=== PATIENT | female | born 1975 | race Caucasian/White ===

== ENCOUNTER 2022-10-07 15:07 | Emergency (ER) | payer SELFPAY ==
[2022-10-07 15:15] VITALS: BP 147/95; PULSE 98; RESP 18; TEMP 37.1; O2SAT 95; BMI 28.9
--- NOTE | 2022-10-07 15:51 | ED_ITS ---
HPI - General Adult General: Chief complaint: General Medical Stated complaint: out of seizure meds Time Seen by Provider: 10/07/22 15:25 Source: patient Mode of arrival: ambulatory Limitations: no limitations History of Present Illness: 47-year-old female presents to the ER today for a medication refill. Patient reports she has 1 and half doses of Keppra left. Patient reports she is on 1000 twice daily of Keppra. Seizures are well controlled on that. Patient reports she neglected get an appointment with her PCP in time to get a refill. She does not have an appointment with Dr. Nazario until October 18. Patient needs enough refills to get through until then. Review of Systems General: Reports: 10 or more systems reviewed and unremarkable except in HPI and below Physical Exam Const: COMMON NORMALS: no acute distress, average body habitus, patient oriented x3, no limitations, healthy appearing, alert and well nourished Neuro: COMMON NORMALS: patient oriented x3 SENSORIUM/ORIENTATION: Yes alert Psych: COMMON NORMALS: mental status grossly normal, Normal thought process present and cooperative THOUGHT PROCESS: Normal thought process present Skin: COMMON NORMALS: no rashes or lesions noted GENERAL SKIN EXAM: no rashes or lesions noted Course ED course: Patient presents to the ER needing med refills. Patient is out of Keppra and does not see her PCP until 18 October. She takes with as milligrams twice daily. No concerns reported today. Vital Signs: Vital signs: Vital Signs Temperature 98.7 F 10/07/22 15:15 Pulse Rate 98 10/07/22 15:15 Respiratory Rate 18 10/07/22 15:15 Blood Pressure 147/95 10/07/22 15:15 Pulse Oximetry 95 10/07/22 15:15 Oxygen Delivery Me thod 10/07/22 15:15 MDM - General Adult Medical Decision Making We will refill patient's Keppra dose for 2 weeks. Patient has appointment with Dr. Nazario on the second. No medication dosing changes were made today. Critical Care Time Critical Care Time: Critical Care Time: No Discharge Plan Discharge Patient Disposition: Home Clinical Impression: Seizure disorder Condition: Stable Prescriptions: New Keppra 1,000 mg tablet 1,000 mg PO BID 14 Days Qty: 28 0RF Discharge Orders: Discharge ED (Routine); Ordered 10/07/22 Ordered By: Carissa Ramon Discharge Diet: Usual diet Discharge Activity: Resume usual activity Patient Instructions: Opioid Safety, Pain Management Activity Restrictions/Additional Instructions: Keppra as prescribed. Keep appointment with PCP and follow-up on the second. Coding Level of Care Code ED Electrician Locomotive for Raj Roman
== END 2022-10-07 16:06 | disposition home or self-care (01) ==
PROVIDERS: Emergency Provider Physician Assistant
DX: Z76.0 Encounter for issue of repeat prescription (principal); G40.909 Epilepsy, unspecified, not intractable, without status epilepticus
CPT/HCPCS: 99283

== ENCOUNTER 2023-04-24 14:46 | Emergency (ER) | payer MEDICAID, SELFPAY ==
[2023-04-24 14:56] VITALS: BMI 25.4
[2023-04-24 15:08] VITALS: BP 169/102; PULSE 100; RESP 16; TEMP 36.7; O2SAT 95
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
[2023-04-24] MEDS: iohexol 350 mg/mL 500 mL Btl (per mL) IV (16:32)
[2023-04-24 17:32] VITALS: PULSE 82; O2SAT 96
--- NOTE | 2023-04-25 07:48 | DCPLANNER ---
Addendum entered by Violet Bower 05/06/23 13:43: account manager forest service received the following message from Deborah from [facility] regarding referral sent to [facility]: Attempted phone call 2 x's says the number I am calling is currently suspended. Original Note: account manager forest service had message to schedule a follow up appointment for patient with [facility]. account manager forest service sent patients information to the scheduling department at [facility]. Patients information will be printed and reviewed. Clinic will call patient with appointment information.
== END 2023-04-24 17:36 | disposition home or self-care (01) ==
PROVIDERS: Emergency Provider Physician Assistant
DX: S30.1XXA Contusion of abdominal wall, initial encounter (principal); S00.83XA Contusion of other part of head, initial encounter; Y04.2XXA Assault by strike against or bumped into by another person, initial encounter; Y92.009 Unspecified place in unspecified non-institutional (private) residence as the place of occurrence of the external cause
CPT/HCPCS: 70450; 70486; 71045; 72125; 74177; 99285; Q9967

== ENCOUNTER → 2023-05-03 11:27 | Outpatient (BNVA) | payer MEDICAID, SELFPAY | PROVIDERS: Visit Provider Nurse Practitioner Family | DX: G40.909 Epilepsy, unspecified, not intractable, without status epilepticus (principal); Z79.899 Other long term (current) drug therapy | CPT/HCPCS: 80053; 80061; 80157; 84443 ==

== ENCOUNTER 2023-06-24 16:33 | Outpatient (CLI) | payer MEDICAID, SELFPAY ==
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
== END 2023-06-24 16:34 | disposition home or self-care (01) ==
PROVIDERS: PCP Family Medicine; Visit Provider Nurse Practitioner
DX: M54.51 Vertebrogenic low back pain (principal); S22.42XD Multiple fractures of ribs, left side, subsequent encounter for fracture with routine healing; X58.XXXD Exposure to other specified factors, subsequent encounter; M47.817 Spondylosis without myelopathy or radiculopathy, lumbosacral region
CPT/HCPCS: 72110

== ENCOUNTER 2023-07-14 20:19 | Emergency (ER) | payer MEDICAID, SELFPAY ==
[2023-07-14 20:23] VITALS: BP 138/95; PULSE 67; RESP 18; TEMP 36.7; O2SAT 100; BMI 19.5
--- NOTE | 2023-07-14 20:53 | ECG_ITS ---
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 Measurements Intervals [place] Rate: 68 P: 51 ID: [id number] QRS: 57 QRSD: 82 T: 65 QT: 400 QTc: 428 Interpretive Statements SINUS RHYTHM WITH SINUS ARRHYTHMIA POSSIBLE LEFT ATRIAL ENLARGEMENT [-0.1mV P-WAVE IN V1/V2] POSSIBLE RIGHT VENTRICULAR CONDUCTION DELAY [RSR (QR) IN V1/V2] No previous ECG available for comparison Electronically Signed On 07-15-2023 7:35:17 CDT by Pal Tong M.D. [id number]
[2023-07-14 21:04] LABS: HCG Qualitative Urine. Negative (Negative)
[2023-07-14 21:06] LABS: Amphetamines Screen Urine Positive (Negative); Barbiturates Screen Urine Negative (Negative); Benzodiazepines Screen Urine Negative (Negative); Cocaine Screen Urine Negative (Negative); Opiate Screen Urine Negative (Negative); PCP Screen Urine Negative (Negative); THC Screen Urine Positive (Negative)
--- NOTE | 2023-07-14 21:06 | W.ED.PSYCHS ---
Documented by User: Deangelo Gregorio, 07/15/23 06:09 HPI - Psych General: Chief Complaint: Psychiatric Symptoms Stated Complaint: [facility] wants PT 96'd Time Seen by Provider: 07/14/23 20:24 History of Present Illness: 48-year-old female with a history of epilepsy, depression. She presents with [place] law [employer]. Evidently while in custody, she broke a telephone, and was placed in a safe cell. In the safe cell, she cut her wrist on a broken tile. By report she broke the tile. Police have filled out affidavits stating that she made statements about wanting to hurt her , and that she had cut her wrist with a piece of broken tile in the safe cell. On my examination, she has made threats to 2 different staff members about physical harm that would come to them if any of her shit goes missing . Associated symptoms: Reports delusions Review of Systems Const: Denies: fever(s) ENMT: Denies: throat pain Card: Denies: chest pain Resp: Denies: dyspnea GI: Denies: abdominal pain or vomiting : Denies: difficulty voiding Physical Exam Const: COMMON NORMALS: alert GENERAL APPEARANCE: appears older than stated age; not cooperative, not ill appearing and not frail appearing HENMT: COMMON NORMALS: normocephalic and Normal external nose present HEAD & SCALP: normocephalic FACE & SINUS: normal facial exam and face symmetric NOSE: Normal external nose present Eye: COMMON NORMALS: Equal, round and reactive pupils present and EOMs intact bilaterally PUPIL: Yes Equal, round and reactive pupils present Neck/C-Spine: GENERAL: Yes trachea midline Chest: CHEST: Yes Symmetrical chest wall rise Resp: COMMON NORMALS: normal respiratory effort, No retractions, No use of accessory muscles and clear to auscultation bilaterally AUSCULTATION: clear to auscultation bilaterally Cardio: COMMON NORMALS: regular rate and regular rhythm RATE: regular rate RHYTHM: regular rhythm Extremity: NARRATIVE EXTREMITY EXAM: Atraumatic Neuro: PHONG COMA SCALE: document GCS findings Phong coma scale eye opening: Spontaneous Phong coma scale verbal response: Orientated [place] coma scale motor response: Obey commands [place] coma scale total score: 15 SENSORIUM/ORIENTATION: Yes alert Psych: ATTITUDE: Yes agitated and Yes aggressive ACTIVITY/MOTOR BEHAVIOR: Yes psychomotor agitation SPEECH: Yes Pressured speech present MOOD & AFFECT: Yes hostile affect THOUGHT CONTENT: Yes delusions Delusional thought content details: paranoid Skin: NARRATIVE SKIN EXAM: Abrasion to the ulnar left wrist,4 cm. Face to Face: Restrn/Seclusion Events leading up to initiation: Verbalizing threat to self or others Evaluation of patient's immediate situation: Alert and oriented and Signs of physical distress Recent labs reviewed: No Review of medications: Yes Attending notified: Attending completed assessment Course Vital Signs: Vital signs: Vital Signs Temperature 98.1 F 07/14/23 20:23 Pulse Rate 66 07/15/23 06:40 Respiratory Rate 16 07/15/23 06:40 Blood Pressure 104/52 07/15/23 06:40 Pulse Oximetry 97 07/15/23 06:40 Oxygen Delivery Me thod Room Air 07/14/23 20:23 MDM - Psych Medical Decision Making I had a conversation with this patient. She denies suicidality here. She has made previous statements about physical harm to family (her ), and 2 different staff members. She cut her wrist with a broken piece of tile in [facility]. I am inclined to place her under 96-hour hold for this. Patient is significant abrasion to the left wrist. Nonrepairable. She will be given a tetanus shot as she does not remember her last tetanus. Urine drug screen shows amphetamines and marijuana. Other laboratories pending. I interviewed the patient again. I told her she would have to be placed under 96-hour hold, she did not want any sort of chemical I told her that if she remained calm and cooperative we would not have to give her any medication. This did not last long. She became belligerent again was shouting, and threatening my staff. Because of this, she was medicated with 20 mg of Geodon and 2 mg of lorazepam. She is resting comfortably now. 0224: Patient remains medically stable. She is resting comfortably. Potassium is mildly low. She is given replacement. Urine tox screen is positive for amphetamine. Other laboratory is not remarkable. We have no beds available currently in our facility. We have reached out to other facilities across the state, and no psychiatric beds are available currently. We will reassess in the morning for discharge is here and/or other facilities. 0608: Spoke with [facility]. They have a bed, and are willing to take the patient. Consulted with Dr. Cathryn corbin, who has accepted. She will go by ground transport when EMS is available. Her potassium is mildly low, we repleted this. Again, she remains medically stable, and has not required further sedation. Lab Data 07/14/23 22:15 07/14/23 22:15 Laboratory Results WBC 7.23 10^3/uL (3.29-11.43) 07/14/23 22:15 RBC 3.74 10^6/uL (3.85-5.65) L 07/14/23 22:15 Hgb 12.60 g/dL (11.27-16.99) 07/14/23 22:15 Hct 37.4 % (36-47) 07/14/23:15 MCV 100.0 fl (85-98) H 07/14/23 22:15 MCH 33.7 pg (27-33) H 07/14/23 22:15 MCHC 33.7 g/dL (30-55) 07/14/23 22:15 RDW 13.4 % (12.1-15.1) 07/14/23 22:15 Plt Count 378 10^3/cmm (157-399) 07/14/23 22:15 MPV 7.8 fL (7.4-10.4) 07/14/23 22:15 Neut % (Auto) 67.3 % 07/14/23 22:15 Lymph % (Auto) 19.5 % 07/14/23 22:15 [place] % (Auto) 8.9 % 07/14/23:15 Eos % (Auto) 3.3 % 07/14/23:15 Baso % (Auto) 0.7 % 07/14/23 22:15 Neut # (Auto) 4.87 10^3/uL (1.8-7.7) 07/14/23:15 Lymph # (Auto) 1.4 10^3/uL (0.8-4.8) 07/14/23 22:15 [place] # (Auto) 0.6 10^3/uL (0.2-0.9) 07/14/23 22:15 Eos # (Auto) 0.2 10^3/uL (0.0-0.8) 07/14/23 22:15 Baso # (Auto) 0.1 10^3/uL (0.0-0.1) 07/14/23 22:15 Nucleated RBC % (auto) 0 % 07/14/23 22:15 Nucleated RBCs # 0.0 /100WBC 07/14/23 22:15 Sodium 137 mmol/L (136-145) 07/14/23 22:15 Potassium 3.2 mmol/L (3.5-5.1) L 07/14/23 22:15 Chloride 101 mmol/L (98-107) 07/14/23 22:15 Carbon Dioxide 24 mmol/L (22-29) 07/14/23 22:15 Anion Gap 15.2 (5-19) 07/14/23 22:15 BUN 11 mg/dL (6-20) 07/14/23 22:15 Creatinine 0.5 mg/dL (0.5-0.9) 07/14/23 22:15 GFR Calculation 132.2 mL/min (90-130) H 07/14/23 22:15 Glucose 96 mg/dL (65-115) 07/14/23 22:15 Calculated Osmolality 283 mOsm/kg (285-295) L 07/14/23 22:15 Calcium 9.3 mg/dL (8.5-10.5) 07/14/23 22:15 Total Bilirubin 0.2 mg/dL (0.15-1.2) 07/14/23 22:15 AST 20 U/L (0-32) 07/14/23 22:15 ALT 20 U/L (0-33) 07/14/23 22:15 Alkaline Phosphatase 106 U/L (35-105) H 07/14/23 22:15 Total Protein 6.7 g/dL (6.6-8.7) 07/14/23 22:15 Albumin 4.1 g/dL (3.5-5.2) 07/14/23 22:15 Globulin 2.6 g/dL (1.3-4.6) 07/14/23 22:15 TSH 2.16 uIU/mL (0.27-4.20) 07/14/23 22:15 HCG, Qual Negative (Negative) 07/14/23 20:50 Urine Color Jada (Yellow) 07/14/23 20:50 Urine Appearance Cloudy (CLEAR) A 07/14/23 20:50 Urine pH 5 (5-7) 07/14/23 20:50 Ur Specific [place] 1.025 (1.005-1.030) 07/14/23 20:50 Urine Protein 1+ (Negative) H 07/14/23 20:50 Urine Glucose (UA) Norm (Normal) 07/14/23 20:50 Urine Ketones 1+ (Negative) H 07/14/23 20:50 Urine Blood 3+ (Negative) H 07/14/23 20:50 Urine Nitrate Negative (Negative) 07/14/23 20:50 Urine Bilirubin 1+ (Negative) H 07/14/23 20:50 Urine Urobilinogen 1 mg/dL (Negative) H 07/14/23 20:50 Ur Leukocyte Esterase Trace (Negative) H 07/14/23 20:50 Urine RBC 15-25 /hpf (0-2) H 07/14/23 20:50 Urine WBC 0-4 /hpf (0-5) H 07/14/23 20:50 Ur Squamous Epith Cells 15-25 /hpf (0-5) H 07/14/23 20:50 Amorphous Sediment 2+ /hpf 07/14/23 20:50 Urine Bacteria Trace /hpf (NONE) 07/14/23 20:50 Urine Mucus 3+ /hpf 07/14/23 20:50 Salicylates < 0.3 mg/dL (3-10) L 07/14/23 22:15 Urine Opiates Screen Negative ng/mL (Negative) 07/14/23 20:50 Acetaminophen < 5.0 ug/mL (10-30) L 07/14/23 22:15 Ur Barbiturates Screen Negative ng/mL (Negative) 07/14/23 20:50 Carbamazepine 2.0 ug/mL (4.0-12.0) L 07/14/23 22:15 Ur Phencyclidine Scrn Negative ng/mL (Negative) 07/14/23 20:50 Ur Amphetamines Screen Positive ng/mL (Negative) H 07/14/23 20:50 U Benzodiazepines Scrn Negative ng/mL (Negative) 07/14/23 20:50 Urine Cocaine Screen Negative ng/mL (Negative) 07/14/23 20:50 U Marijuana (THC) Screen Positive ng/mL (Negative) H 07/14/23 20:50 Ethyl Alcohol < 10 mg/dL (0-10) 07/14/23 22:15 SARS-CoV-2 Ag (Rapid) negative (Negative) 07/15/23 00:00 No radiology studies performed this visit Discharge Plan Discharge Patient Disposition: Xfer Psychiatric Hosp Clinical Impression: Suicidal ideation, Homicidal ideation, Drug-induced psychotic disorder Condition: Stable Referrals: Jacy Figueroa MD [Primary Care Provider] - Coding Level of Care Code ED Marketing Researcher for Chg Fwd Documented by User: Mario Crane DO 07/15/23 07:55 HPI - Psych General: Chief Complaint: Psychiatric Symptoms Stated Complaint: [facility] wants PT 96'd Time Seen by Provider: 07/14/23 20:24 Physical Exam Neuro: PHONG COMA SCALE: document GCS findings [place] coma scale total score: 15 Course Vital Signs: Vital signs: Vital Signs Temperature 98.1 F 07/14/23 20:23 Pulse Rate 66 07/15/23 06:40 Respiratory Rate 16 07/15/23 06:40 Blood Pressure 104/52 07/15/23 06:40 Pulse Oximetry 97 07/15/23 06:40 Oxygen Delivery Me thod Room Air 07/14/23 20:23 MDM - Psych Lab Data 07/14/23 22:15 07/14/23 22:15 Laboratory Results WBC 7.23 10^3/uL (3.29-11.43) 07/14/23 22:15 RBC 3.74 10^6/uL (3.85-5.65) L 07/14/23 22:15 Hgb 12.60 g/dL (11.27-16.99) 07/14/23 22:15 Hct 37.4 % (36-47) 07/14/23 22:15 MCV 100.0 fl (85-98) H 07/14/23 22:15 MCH 33.7 pg (27-33) H 07/14/23 22:15 MCHC 33.7 g/dL (30-55) 07/14/23 22:15 RDW 13.4 % (12.1-15.1) 07/14/23 22:15 Plt Count 378 10^3/cmm (157-399) 07/14/23 22:15 MPV 7.8 fL (7.4-10.4) 07/14/23 22:15 Neut % (Auto) 67.3 % 07/14/23 22:15 Lymph % (Auto) 19.5 % 07/14/23 22:15 [place] % (Auto) 8.9 % 07/14/23 22:15 Eos % (Auto) 3.3 % 07/14/23 22:15 Baso % (Auto) 0.7 % 07/14/23 22:15 Neut # (Auto) 4.87 10^3/uL (1.8-7.7) 07/14/23 22:15 Lymph # (Auto) 1.4 10^3/uL (0.8-4.8) 07/14/23 22:15 [place] # (Auto) 0.6 10^3/uL (0.2-0.9) 07/14/23 22:15 Eos # (Auto) 0.2 10^3/uL (0.0-0.8) 07/14/23 22:15 Baso # (Auto) 0.1 10^3/uL (0.0-0.1) 07/14/23 22:15 Nucleated RBC % (auto) 0 % 07/14/23 22:15 Nucleated RBCs # 0.0 /100WBC 07/14/23 22:15 Sodium 137 mmol/L (136-145) 07/14/23 22:15 Potassium 3.2 mmol/L (3.5-5.1) L 07/14/23 22:15 Chloride 101 mmol/L (98-107) 07/14/23 22:15 Carbon Dioxide 24 mmol/L (22-29) 07/14/23 22:15 Anion Gap 15.2 (5-19) 07/14/23 22:15 BUN 11 mg/dL (6-20) 07/14/23 22:15 Creatinine 0.5 mg/dL (0.5-0.9) 07/14/23 22:15 GFR Calculation 132.2 mL/min (90-130) H 07/14/23 22:15 Glucose 96 mg/dL (65-115) 07/14/23 22:15 Calculated Osmolality 283 mOsm/kg (285-295) L 07/14/23 22:15 Calcium 9.3 mg/dL (8.5-10.5) 07/14/23 22:15 Total Bilirubin 0.2 mg/dL (0.15-1.2) 07/14/23 22:15 AST 20 U/L (0-32) 07/14/23 22:15 ALT 20 U/L (0-33) 07/14/23 22:15 Alkaline Phosphatase 106 U/L (35-105) H 07/14/23 22:15 Total Protein 6.7 g/dL (6.6-8.7) 07/14/23 22:15 Albumin 4.1 g/dL (3.5-5.2) 07/14/23 22:15 Globulin 2.6 g/dL (1.3-4.6) 07/14/23 22:15 TSH 2.16 uIU/mL (0.27-4.20) 07/14/23 22:15 HCG, Qual Negative (Negative) 07/14/23 20:50 Urine Color Jada (Yellow) 07/14/23 20:50 Urine Appearance Cloudy (CLEAR) A 07/14/23 20:50 Urine pH 5 (5-7) 07/14/23 20:50 Ur Specific [place] 1.025 (1.005-1.030) 07/14/23 20:50 Urine Protein 1+ (Negative) H 07/14/23 20:50 Urine Glucose (UA) Norm (Normal) 07/14/23 20:50 Urine Ketones 1+ (Negative) H 07/14/23 20:50 Urine Blood 3+ (Negative) H 07/14/23 20:50 Urine Nitrate Negative (Negative) 07/14/23 20:50 Urine Bilirubin 1+ (Negative) H 07/14/23 20:50 Urine Urobilinogen 1 mg/dL (Negative) H 07/14/23 20:50 Ur Leukocyte Esterase Trace (Negative) H 07/14/23 20:50 Urine RBC 15-25 /hpf (0-2) H 07/14/23 20:50 Urine WBC 0-4 /hpf (0-5) H 07/14/23 20:50 Ur Squamous Epith Cells 15-25 /hpf (0-5) H 07/14/23 20:50 Amorphous Sediment 2+ /hpf 07/14/23 20:50 Urine Bacteria Trace /hpf (NONE) 07/14/23 20:50 Urine Mucus 3+ /hpf 07/14/23 20:50 Salicylates < 0.3 mg/dL (3-10) L 07/14/23 22:15 Urine Opiates Screen Negative ng/mL (Negative) 07/14/23 20:50 Acetaminophen < 5.0 ug/mL (10-30) L 07/14/23 22:15 Ur Barbiturates Screen Negative ng/mL (Negative) 07/14/23 20:50 Carbamazepine 2.0 ug/mL (4.0-12.0) L 07/14/23 22:15 Ur Phencyclidine Scrn Negative ng/mL (Negative) 07/14/23 20:50 Ur Amphetamines Screen Positive ng/mL (Negative) H 07/14/23 20:50 U Benzodiazepines Scrn Negative ng/mL (Negative) 07/14/23 20:50 Urine Cocaine Screen Negative ng/mL (Negative) 07/14/23 20:50 U Marijuana (THC) Screen Positive ng/mL (Negative) H 07/14/23 20:50 Ethyl Alcohol < 10 mg/dL (0-10) 07/14/23 22:15 SARS-CoV-2 Ag (Rapid) negative (Negative) 07/15/23 00:00 Discharge Plan Discharge Patient Disposition: Xfer Psychiatric Hosp Clinical Impression: Suicidal ideation, Homicidal ideation, Drug-induced psychotic disorder Condition: Stable Referrals: Jacy Figueroa MD [Primary Care Provider] - Coding Level of Care Code ED Marketing Researcher for Raj Roman
--- NOTE | 2023-07-14 21:10 | PC.NURSE ---
pt is yelling about someone taking her purse. she is making statements like 'he is coming to take my shit' and 'i can hear that god damn cabinet opening someone is taking my shit'. pt was yelling and attempting to come out of room.
[2023-07-14 21:11] LABS: Add Urine Microscopic? YES; Bacteria Urine TRACE /hpf; Bilirubin Urine 1+ (Negative); Blood Urine 3+ (Negative); Glucose Urine UA Norm (Normal); Ketones Urine 1+ (Negative); Leukocyte Esterase Urine Trace (Negative); Mucus Urine 3+ /hpf; Nitrate Urine Negative (Negative); Protein Urine 1+ (Negative); RBC Urine 15-25 /hpf (0-2); Specific Gravity, Urine 1.025 (1.005-1.030); Squamous Epithelial Cell Urine 15-25 /hpf (0-5); Urine Appearance Cloudy (CLEAR); Urine Color Amber (Yellow); Urobilinogen Urine 1 mg/dL (Negative); WBC Urine 0-4 /hpf (0-5); pH Urine 5 (5-7)
[2023-07-14 21:12] LABS: Add Urine Culture? No; Amorphous Sediment Urine 2+ /hpf
[2023-07-14] MEDS: LORazepam 2 mg/mL INJ 1 mL IM (21:25)
[2023-07-14] MEDS: ziprasidone 20 mg/mL SDV IM (21:25)
[2023-07-14 22:37] LABS: Basophils # 0.1 10^3/uL (0.0-0.1); Basophils % 0.7 %; Eosinophils # 0.2 10^3/uL (0.0-0.8); Eosinophils % 3.3 %; Hematocrit 37.4 % (36-47); Lymphocytes # 1.4 10^3/uL (0.8-4.8); Lymphocytes % 19.5 %; Mean Corpuscular HGB Conc 33.7 g/dL (30-55); Mean Corpuscular Hemoglobin 33.7 pg (27-33); Mean Platelet Volume 7.8 fL (7.4-10.4); Monocytes # 0.6 10^3/uL (0.2-0.9); Monocytes % 8.9 %; Neutrophils # 4.87 10^3/uL (1.8-7.7); Neutrophils % 67.3 %; Nucleated Red Blood Cells % 0 %; Platelet Count 378 10^3/cmm (157-399); Red Blood Count 3.74 10^6/uL (3.85-5.65); Red Cell Distribution Width 13.4 % (12.1-15.1); White Blood Count 7.23 10^3/uL (3.29-11.43)
--- NOTE | 2023-07-14 22:44 | PC.NURSE ---
96 HOUR HOLD Pt served with copy of 96 Hold Rights.
[2023-07-14 22:58] LABS: Alanine Aminotransferase 20 U/L (0-33); Albumin Level 4.1 g/dL (3.5-5.2); Alkaline Phosphatase 106 U/L (35-105); Anion Gap 15.2 (5-19); Aspartate Amino Transferase 20 U/L (0-32); Blood Urea Nitrogen 11 mg/dL (6-20); Calcium 9.3 mg/dL (8.5-10.5); Carbon Dioxide 24 mmol/L (22-29); Chloride 101 mmol/L (98-107); Globulin 2.6 g/dL (1.3-4.6); Glomerular Filtration Rate 132.2 mL/min (90-130); Glucose 96 mg/dL (65-115); Osmolality Calculated 283 mOsm/kg (285-295); Potassium 3.2 mmol/L (3.5-5.1); Sodium 137 mmol/L (136-145); Total Bilirubin 0.2 mg/dL (0.15-1.2); Total Protein 6.7 g/dL (6.6-8.7)
[2023-07-14 22:59] LABS: Acetaminophen < 5.0 ug/mL (10-30); Alcohol Level < 10 mg/dL (0-10); Salicylate < 0.3 mg/dL (3-10)
[2023-07-14 23:19] LABS: Thyroid Stimulating Hormone 2.16 uIU/mL (0.27-4.20)
[2023-07-15 00:38] LABS: SARS Covid-2 Antigen negative (Negative)
[2023-07-15] MEDS: potassium chloride ER 20 mEq Tablet PO (06:20)
[2023-07-15] MEDS: levETIRAcetam 500 mg Tablet 1000 MG PO (06:29)
[2023-07-15] MEDS: tetanus-dipt-pertussis 0.5 mL SDV IM (06:30)
[2023-07-15 06:40] VITALS: BP 104/52; PULSE 66; RESP 16; O2SAT 97
--- NOTE | 2023-07-15 07:22 | PC.PHAR ---
UNABLE TO VERIFY MEDICATIONS WITH PATIENT. WILL VERIFY WITH [facility] WHEN THEY OPEN AT 8 AM.
== END 2023-07-15 09:04 ==
PROVIDERS: Emergency Provider Emergency Medicine; PCP Family Medicine
DX: R45.851 Suicidal ideations (principal); R45.850 Homicidal ideations; F15.959 Other stimulant use, unspecified with stimulant-induced psychotic disorder, unspecified; Z11.52 Encounter for screening for COVID-19; Z23 Encounter for immunization
CPT/HCPCS: 36415; 80053; 80156; 80306; 80307; 81001; 81025; 84443; 85025; 87426; 90471; 90715; 93005; 96372; 99284; J2060; J3486

== ENCOUNTER 2023-11-11 21:38 | Emergency (ER) | payer MEDICAID, SELFPAY ==
[2023-11-11 21:49] VITALS: BP 126/82; PULSE 84; RESP 16; TEMP 36.6; O2SAT 100
--- NOTE | 2023-11-11 22:10 | ED_ITS ---
HPI - Wound/Laceration General: Chief Complaint: Wound/Laceration Stated Complaint: right leg laceration Time Seen by Provider: 11/11/23 22:05 Source: patient and EMS Mode of arrival: EMS Limitations: no limitations History of Present Illness: 48-year-old female states that she had t o break into her own home kicked out the last and it lacerated her right lower leg she does have a laceration to her r ight calf. She does not believe she has any foreign body she is walking here without any problems she rates her pain a 2 out of 10 denies any other injuries. Associated symptoms: Denies chills, fever(s), nausea or vomiting Review of Systems Const: Denies: fever(s) or chills ENMT: Denies: throat pain or dental pain Card: Denies: chest pain Resp: Denies: dyspnea GI: Denies: abdominal pain, nausea, vomiting or diarrhea Musc: Reports: extremity pain; Denies: neck pain or back pain Skin/Breast: Denies: rash Neuro: Denies: headache(s) PFSH ED PFSH: Medical History Psychiatric care Physical Exam Const: COMMON NORMALS: no acute distress, patient oriented x3 and healthy appearing HENMT: COMMON NORMALS: normocephalic and atraumatic HEAD & SCALP: normocephalic and atraumatic Neck/C-Spine: COMMON NORMALS: full ROM and supple Chest: COMMONS NORMALS: normal inspection of the chest Resp: COMMON NORMALS: normal respiratory effort Extremity: COMMON NORMALS: full ROM NARRATIVE EXTREMITY EXAM: 7 cm laceration to right lower leg deep structures intact bleeding is controlled no foreign body noted Neuro: COMMON NORMALS: patient oriented x3, moves all extremities and no focal motor deficits Psych: COMMON NORMALS: mental status grossly normal, Normal thought process present and cooperative THOUGHT PROCESS: Normal thought process present Skin: COMMON NORMALS: no rashes or lesions noted GENERAL SKIN EXAM: no rashes or lesions noted Procedures Laceration Laceration 1: Site: lower extremity Side (If applicable): right Size (cm): 7 Description: linear Depth: simple, single layer Local Anesthetic: lidocaine 1% Amount of anesthesia used (mL): 10 Pre-repair: wound explored and irrigated extensively Skin layer closed with: nylon Size (cm): 4-0 Number of sutures: 6 Technique: simple, interrupted Course Vital Signs: Vital signs: Vital Signs Temperature 97.9 F 11/11/23 21:49 Pulse Rate 84 11/11/23 21:49 Respiratory Rate 16 11/11/23 21:49 Blood Pressure 126/82 11/11/23 21:49 Pulse Oximetry 100 11/11/23 21:49 Oxygen Delivery Me thod Room Air 11/11/23 21:49 MDM - Wound/Laceration Medical Decision Making Patient presents here with patient presents here with a laceration to the right lower leg x-ray shows no foreign body did repair the laceration here she is have sutures removed in 2 weeks return if worsening Medical Records I reviewed the patient's medical records. XR interpretation done by ED provider, pending radiology final review ED provider radiology interpretation(s): xr leg: no acute foreign body Discharge Plan Discharge Patient Disposition: Home Clinical Impression: Laceration Condition: Stable Prescriptions: No Action Flonase Allergy Relief 50 mcg/actuation spray,suspension 1 spray INTRANASAL DAILY PRN (Reason: Allergic Symptoms) Qty: 15.8 4RF Rx Instructions: administer into each nostril loratadine 10 mg tablet 10 mg PO DAILY 90 Days Qty: 90 1RF olanzapine 10 mg tablet 10 mg PO .HS Qty: 30 3RF simvastatin 20 mg tablet 20 mg PO .QHS 30 Days Qty: 30 3RF carbamazepine 200 mg tablet 200 mg PO BID 30 Days Qty: 60 0RF levetiracetam 1,000 mg tablet 1,000 mg PO BID 30 Days Qty: 60 0RF topiramate 100 mg tablet 100 mg PO BID 30 Days Qty: 60 0RF cyclobenzaprine 10 mg tablet 10 mg PO TID PRN (Reason: Spasms) hydrocodone-acetaminophen 7.5-325 mg tablet 1 tab PO QID PRN (Reason: Pain) Discharge Orders: Discharge ED (Routine); Ordered 11/11/23 Ordered By: Marissa Cancino Referrals: Jacy Figueroa MD [Primary Care Provider] - Discharge Diet: Advance as tolerated Discharge Activity: Resume usual activity Patient Instructions: Laceration (ED) Activity Restrictions/Additional Instructions: suture removal in 14 days Coding Level of Care Code ED [employer] Business Analyst for Sheilag Abel
--- NOTE | 2023-11-11 22:10 | XRR_ITS ---
PROCEDURE INFORMATION: Exam: XR Right Tibia and Fibula Exam date and time: 11/11/2023 10:17 PM Age: 48 years old Clinical indication: Other: Laceration to RT lower leg TECHNIQUE: Imaging protocol: Radiologic exam of the right tibia and fibula. Views: 2 views. COMPARISON: No relevant prior studies available. FINDINGS: Bones/joints: No evidence of acute fracture or subluxation. Tibia and fibula are intact. Soft tissues: Laceration of the medial aspect of the proximal-mid right lower extremity. No evidence of radiopaque foreign body. XR/XR tibia fibula RT 2V [id number] IMPRESSION: 1. Tibia and fibula are intact. 2. Laceration of the medial aspect of the proximal-mid right lower extremity. No evidence of radiopaque foreign body.
[2023-11-11] MEDS: lidocaine 1% INJ 10 mL (per mL) 20 ML SUBCUT (22:25)
== END 2023-11-11 22:56 | disposition home or self-care (01) ==
PROVIDERS: Emergency Provider Emergency Medicine; PCP Family Medicine
DX: S81.811A Laceration without foreign body, right lower leg, initial encounter (principal); W25.XXXA Contact with sharp glass, initial encounter
CPT/HCPCS: 12002; 73590; 99283

== ENCOUNTER 2023-12-06 09:59 | Emergency (ER) | payer OTHER, MEDICAID, SELFPAY ==
[2023-12-06 10:40] VITALS: BP 133/89; PULSE 101; RESP 18; TEMP 36.8; O2SAT 100
--- NOTE | 2023-12-06 12:07 | W.ED.GENADLT ---
HPI - General Adult General: Chief complaint: General Medical Stated complaint: Medication eval Time Seen by Provider: 12/06/23 11:56 Source: patient Mode of arrival: ambulatory Limitations: no limitations History of Present Illness: Patient is a 48-year-old female presents to ED today requesting a refill on some of her medications. Patient states she has an appointment with her primary care provider in 2 days for additional refills but states she is out of her Keppra, Zoloft, and statin medication. Onset (ago): day(s) Associated symptoms: Reports no associated symptoms; Deny chest pain, dyspnea, headache(s) or palpitations Treatments prior to arrival: none Review of Systems General: Reports: 10 or more systems reviewed and unremarkable except in HPI and below Const: Denies: fever(s) Card: Denies: chest pain or palpitations Resp: Denies: dyspnea Neuro: Denies: headache(s), numbness in extremities, weakness in extremities, sensory changes, dizziness, behavioral changes or seizure-like activity [facility] ED PFSH: Medical History Psychiatric care Physical Exam Const: COMMON NORMALS: no acute distress, patient oriented x3, no limitations and alert GENERAL APPEARANCE: cooperative and appears older than stated age ORIENTATION/CONSCIOUSNESS: Yes awake, Yes oriented to person, Yes oriented to place and Yes oriented to time Resp: COMMON NORMALS: normal respiratory effort and clear to auscultation bilaterally AUSCULTATION: clear to auscultation bilaterally Cardio: COMMON NORMALS: regular rate and regular rhythm RATE: regular rate RHYTHM: regular rhythm Neuro: COMMON NORMALS: patient oriented x3 SENSORIUM/ORIENTATION: Yes alert, Yes oriented to person, Yes oriented to place and Yes oriented to time Psych: COMMON NORMALS: mental status grossly normal, Normal thought process present, cooperative, normal affect, speech normal, denies homicidal ideation and denies suicidal ideation SPEECH: Yes normal speech THOUGHT PROCESS: Normal thought process present Course Vital Signs: Vital signs: Vital Signs Temperature 98.2 F 12/06/23 10:40 Pulse Rate 101 H 12/06/23 10:40 Respiratory Rate 18 12/06/23 10:40 Blood Pressure 133/89 12/06/23 10:40 Pulse Oximetry 100 12/06/23 10:40 Oxygen Delivery Me thod Room Air 12/06/23 10:40 MDM - General Adult Medical Decision Making Patient will be provided refills of the medications she is currently out of. Recommend follow-up with her primary care in 2 days as currently scheduled. They may provide remainder of refills. No radiology studies performed this visit Discharge Plan Discharge Patient Disposition: Home Clinical Impression: Encounter for medication refill Condition: Stable Prescriptions: New Zoloft 50 mg tablet 50 mg PO DAILY Qty: 30 0RF Zocor 20 mg tablet 20 mg PO DAILY Qty: 30 0RF Continued levetiracetam 1,000 mg tablet 1,000 mg PO BID 30 Days Qty: 60 0RF No Action Flonase Allergy Relief 50 mcg/actuation spray,suspension 1 spray INTRANASAL DAILY PRN (Reason: Allergic Symptoms) Qty: 15.8 4RF Rx Instructions: administer into each nostril loratadine 10 mg tablet 10 mg PO DAILY 90 Days Qty: 90 1RF olanzapine 10 mg tablet 10 mg PO .HS Qty: 30 3RF simvastatin 20 mg tablet 20 mg PO .QHS 30 Days Qty: 30 3RF carbamazepine 200 mg tablet 200 mg PO BID 30 Days Qty: 60 0RF topiramate 100 mg tablet 100 mg PO BID 30 Days Qty: 60 0RF cyclobenzaprine 10 mg tablet 10 mg PO TID PRN (Reason: Spasms) hydrocodone-acetaminophen 7.5-325 mg tablet 1 tab PO QID PRN (Reason: Pain) Discharge Orders: Discharge ED (Routine); Ordered 12/06/23 Ordered By: Tiffani Roe Referrals: Jacy Figueroa MD [Primary Care Provider] - Coding Level of Care Code ED Utilization Management Manager for Chg Abel
[2023-12-06 12:24] VITALS: BP 135/90; PULSE 99; RESP 16; O2SAT 100
[2023-12-06 12:25] VITALS: BP 135/90; PULSE 99; RESP 16; TEMP 36.8; O2SAT 100
== END 2023-12-06 12:26 | disposition home or self-care (01) ==
PROVIDERS: Emergency Provider Physician Assistant; PCP Family Medicine
DX: Z76.0 Encounter for issue of repeat prescription (principal)
CPT/HCPCS: 99281

== ENCOUNTER → 2024-09-22 10:21 | Outpatient (BNVA) | payer OTHER, SELFPAY | PROVIDERS: PCP Clinical Nurse Specialist Adult Health; Visit Provider Clinical Nurse Specialist Adult Health | DX: G40.909 Epilepsy, unspecified, not intractable, without status epilepticus (principal); F32.A Depression, unspecified; E78.2 Mixed hyperlipidemia | CPT/HCPCS: 80053; 80061; 80156; 83036; 85025 ==

== ENCOUNTER → 2024-12-23 10:01 | Outpatient (BNVA) | payer OTHER, MEDICAID, SELFPAY | PROVIDERS: PCP Clinical Nurse Specialist Adult Health; Referring Provider Clinical Nurse Specialist Adult Health; Visit Provider Psychiatry & Neurology Neurology | DX: G40.909 Epilepsy, unspecified, not intractable, without status epilepticus (principal) | CPT/HCPCS: 36415; 80157; 80201 ==

== ENCOUNTER 2024-12-30 09:33 | Outpatient (CLI) | payer OTHER, MEDICAID, SELFPAY ==
--- NOTE | 2024-12-30 10:15 | MR_ITS ---
WS: [id number] MRI HEAD WITH CONTRAST TECHNIQUE: Sagittal T1, T2 axial, T2 axial FLAIR, axial susceptibility weighted imaging, axial diffusion weighted images, and coronal T2 images were obtained. Pre and post-T1 axial and post T1 coronal images. ADC and FSPGR images. CLINICAL INFORMATION: G40.909 - Epilepsy, unspecified, not intractable, without... COMPARISON: CT 2022 FINDINGS: No evidence of restricted diffusion to suggest acute ischemia. Ventricular system and basilar cisterns are patent. No suspicious intracranial signal abnormalities. A few tiny foci of T2 hyperintensity in the frontal and periventricular white matter of doubtful clinical significance but can be seen with migraine headaches. No significant parenchymal volume loss. Normal posterior fossa. Normal vascular flow voids at the skull base. No extra-axial fluid collections. No evidence of mass or mass effect. Paranasal sinuses and mastoid air cells are well aerated. No abnormal gadolinium enhancement. Normal dural venous sinuses. No other acute findings. MR/MR head wo/w con [id number] IMPRESSION: 1. No evidence of restricted diffusion to suggest acute ischemia. 2. No suspicious intracranial signal abnormalities. 3. No hemosiderin on the susceptibly weighted images. 4. Temporal lobes and hippocampal formations are normal in appearance. 5. No abnormal gadolinium enhancement.
[2024-12-30] MEDS: gadobenate dimeglumine 20 mL vial 11 ML IV (10:51)
== END 2024-12-30 09:34 | disposition home or self-care (01) ==
PROVIDERS: PCP Clinical Nurse Specialist Adult Health; Visit Provider Psychiatry & Neurology Neurology
DX: G40.909 Epilepsy, unspecified, not intractable, without status epilepticus (principal)
CPT/HCPCS: 70553; A9577

== ENCOUNTER 2025-01-15 13:52 | Outpatient (CLI) | payer OTHER, MEDICAID, SELFPAY ==
--- NOTE | 2025-01-15 14:45 | USCV_ITS ---
Shahana Stone Age: 50 Gender: F : 1975 Exam Date: 01/15/2025 14:26 Ordering Phys: Nick Whipple MD Technologist: [employer] Exam Location: [facility] [place] Indication: stenosis Risk Factors: Previous Vascular Surgery: Right Brachial BP: / Left Brachial BP: / Right Left Velocity (cm/s) Spectral Plaque Velocity (cm/s) Spectral Plaque Syst/Diast Broadening Syst/Diast Broadening 95.70/ 29.70 Prox CCA 81.40 / 26.60 95.70/ 31.00 Mid CCA 75.70 / 26.40 81.50/ 37.40 Distal CCA 78.50 / 32.00 84.10/ 29.70 Prox ICA 150.80/ 62.10 81.20/ 38.30 Mid ICA 111.90/ 52.20 105.10/48.60 Distal ICA 83.20 / 40.60 84.10 ECA 90.50 1.00 ICA/CCA 1.90 Antegrade Vertebral Antegrade 26.00/ 10.00 cm/s 43.20/ 18.80 cm/s Tri Subclavian Tri 94.20 75.10 CONCLUSIONS Right ICA stenosis <50%. Moderate atheromatous plaque right carotid bulb/ICA. Left ICA stenosis 50-69%.. Moderate atheromatous plaque left carotid bulb/ICA. Normal antegrade Doppler flow noted in the right vertebral artery. Normal antegrade Doppler flow noted in the left vertebral artery. Eric Isaacs MD (Electronically Signed) Final Date: 15 Jan 2025 14:54 S
== END 2025-01-15 13:53 | disposition home or self-care (01) ==
PROVIDERS: PCP Clinical Nurse Specialist Adult Health; Visit Provider Psychiatry & Neurology Neurology
DX: G40.919 Epilepsy, unspecified, intractable, without status epilepticus (principal); R29.818 Other symptoms and signs involving the nervous system; I65.23 Occlusion and stenosis of bilateral carotid arteries
CPT/HCPCS: 93880